=== PATIENT | male | born 1985 | race Caucasian/White ===

== ENCOUNTER 2020-09-02 13:46 | Emergency (ER) | payer SELFPAY ==
[~2020-09-02] VITALS: Ht 177.8 cm; Wt 122.5 kg
[~2020-09-02 13:46] MED LIST: ALBU90OI INH; AZIT250 PO; CEPH500 PO; HYDACE5 PO; IBUP600 PO; METPRE4DP PO; Norco 5-325 Ta1 EACH PO; PRED20 PO; PRODEXEL PO; PROM25 PO; RXOXYACE PO; Silvadene20 GM TOP; TRAM50 PO; Zithromax250 MG PO
[2020-09-02 14:10] LABS: Calcium, Ionized (POC) 1.23 mmol/L (1.10-1.46); Chloride (POC) 105 mmol/L (98-108); Creatinine (POC) 0.7 mg/dL (0.8-1.3); Glucose (ISTAT POC) 114 mg/dL (70-99); Hemoglobin (POC) 14.6 g/dL (13.5-17.5); Potassium (POC) 4.3 mmol/L (3.5-5.5); Sodium (POC) 141 mmol/L (135-148); Total CO2 (POC) 23 mmol/L (21-32)
[2020-09-02] MEDS ORDERED: Cephalexin500 MG PO (15:14)
[2020-09-02] MEDS ORDERED: IBUP400 PO (15:14)
== END 2020-09-02 15:27 | disposition home or self-care (01) ==
LOC: ER 13:46
PROVIDERS: Emergency Medicine
DX: S21.112A Laceration without foreign body of left front wall of thorax without penetration into thoracic cavity, initial encounter (principal); E66.9 Obesity, unspecified; J45.909 Unspecified asthma, uncomplicated; Z71.3 Dietary counseling and surveillance; Z79.899 Other long term (current) drug therapy; W26.0XXA Contact with knife, initial encounter; W01.118A Fall on same level from slipping, tripping and stumbling with subsequent striking against other sharp object, initial encounter
CPT/HCPCS: 12002; 71045; 71260; 80047; 85014; 90471; 90714; 99284-25; Q9967